=== PATIENT | female | born 1955 | race Caucasian/White ===

== ENCOUNTER → 2019-12-22 09:23 | Outpatient (CLI) | payer OTHER, SELFPAY ==
--- NOTE | 2019-12-22 09:27 | XR_ITS ---
PROCEDURE: XR SHOULDER LT MIN 2V CLINICAL INDICATION: left shoulder pain Left shoulder pain COMPARISON: No exams were available for comparison FINDINGS: There are mild osteoarthritic changes the acromioclavicular joint and glenohumeral joint. Spurring is present along the undersurface of the a chromium with severe subacromial stenosis. There is some minimal cortical regularity of the humeral head laterally which may be seen with rotator cuff disease. IMPRESSION: Osteoarthritic change with severe subacromial stenosis secondary to bony hypertrophy along the inferior aspect of the a chromium. This area of calcification could also represent calcific tendinitis. Dictated by: Herbert Mari MD 12/22/2019 14:46 Electronically signed by Herbert Mari MD in [place] 12/22/2019 14:46
== END ==
PROVIDERS: PCP Family Medicine; Visit Provider Orthopaedic Surgery
DX: M25.512 Pain in left shoulder (principal)
CPT/HCPCS: 73030

== ENCOUNTER → 2019-12-28 15:08 | Outpatient (CLI) | payer OTHER, SELFPAY ==
--- NOTE | 2019-12-28 15:08 | MR_ITS ---
PROCEDURE: MR SHOULDER LT WO CON CLINICAL INDICATION: evaluate for a rotator cuff tear Left shoulder pain with limited range of motion COMPARISON: XR SHOULDER LT MIN 2V from 12/22/2019 TECHNIQUE: Routine multiplanar multi echo sequences are performed without gadolinium enhancement. FINDINGS: There are osteoarthritic changes the acromioclavicular joint with subacromial stenosis. The subacromial space measures approximately mm. Osteoarthritic changes are also present at the glenohumeral joint. There is mild superior elevation of the humeral head in the glenoid fossa. There is complete tear of the supraspinatus tendon with mild retraction of the musculotendinous fibers. Tendinopathy/tendinosis is present involving the infraspinatus tendon. The subscapularis tendon and teres minor tendons appear intact. There is a small amount of fluid in the subdeltoid and subacromial region. The glenoid labral are not well delineated due to motion artifact. No definite labral tear. Bicipital tendon is in place. There is also some fluid in the subclavicular region with some heterogeneous intensity at this area anterior to the scapular spine.. IMPRESSION: 1. Complete tear of the supraspinatus tendon with mild retraction of the musculotendinous fibers. 2. Osteoarthritic change of the acromioclavicular joint and glenohumeral joint with subacromial stenosis with shoulder joint effusion as well as fluid in the subacromion subdeltoid region. There is also some fluid in the subclavicular region with some heterogeneous intensity at this area anterior to the scapular spine.. Dictated by: Herbert Mari MD 12/30/2019 10:19 Electronically signed by Herbert Mari MD in [place] 12/30/2019 10:19
== END ==
PROVIDERS: PCP Family Medicine; Visit Provider Orthopaedic Surgery
DX: G89.29 Other chronic pain (principal); M25.512 Pain in left shoulder
CPT/HCPCS: 73221

== ENCOUNTER → 2020-08-22 11:05 | Outpatient (CLI) | payer OTHER, SELFPAY ==
--- NOTE | 2020-08-22 11:06 | CA_ITS ---
APPROVED REPORT EXAM: Comprehensive 2D, Doppler, and color-flow Echocardiogram Tape Controlled Machine Stitcher: Karina Gallegos RT(R) Ht: 5 ft 3 in Wt: 266lbs BSA: 2.18 BP: 121/55 mmHg Indications: CP, HTN, hyperlipidemia, MAHAJAN, hx of myocardial bridge 2D Dimensions LVOT 1.85 cm (M/F) 1.5-2.5 M-Mode Dimensions RVDd 2.43 cm (0.9-2.6) LVDd 4.83 cm (3.5-5.7) LVDs 3.61 cm (3.5-5.7) IVSd 0.84 cm (0.6-1.1) PWd 1.03 cm (0.6-1.1) EF (Teich) 49.80% FS 25.30% EDV (Teich) 109.10 mL ESV (Teich) 54.80 mL LV Diastology E/A Ratio 0.68 Mitral Valve MV A Velocity 116.00 (40-130 cm/s) Left Ventricle Left atrium is mildly enlarged, left ventricle is normal size, mild concentric left ventricular hypertrophy, visually estimated ejection fraction 55% with no regional wall motion abnormality, grade 1 diastolic dysfunction seen without tissue Doppler evidence of raise left atrial pressure. Right Ventricle Right atrium and right ventricular normal size and contractility. Aortic Valve Aortic valve is minimally thickened and calcified, there is no aortic stenosis or aortic insufficiency. Mitral Valve Mitral valve leaflets are minimally thickened, there is mild mitral regurgitation. Tricuspid Valve Tricuspid valve is grossly normal, there is mild tricuspid regurgitation. Tricuspid regurgitation jet velocity is inadequate for calculation of the right ventricular systolic pressure. Pulmonic Valve Pulmonic valve is poorly visualized. Great Vessels Aortic root is normal size. Pericardium No significant pericardial effusion noted. Conclusion 1. Mildly enlarged left atrium, normal left ventricular size, mild concentric left ventricular hypertrophy, visually estimated ejection fraction 55% with no regional wall motion abnormality, grade 1 diastolic dysfunction seen without tissue Doppler evidence of raise left atrial pressure. 2. Thickened and calcified aortic valve without aortic stenosis or aortic insufficiency. 3. Mild mitral and tricuspid regurgitation. 4. No significant pericardial effusion noted. Electronically signed by : Olman Hollins, 08/22/2020 17:27:28
== END ==
PROVIDERS: PCP Family Medicine; Visit Provider Urology
DX: R07.89 Other chest pain (principal); R06.09 Other forms of dyspnea; Q24.5 Malformation of coronary vessels; R94.31 Abnormal electrocardiogram [ECG] [EKG]
CPT/HCPCS: 93306

== ENCOUNTER → 2020-09-12 15:54 | Outpatient (CLI) | payer OTHER, SELFPAY ==
[2020-09-12 17:18] LABS: Basophils # 0.1 K/mm3 (0-0.2); Basophils % 0.7 % (0.1-2.0); Eosinophils # 0.2 K/mm3 (0.0-0.4); Eosinophils % 1.9 % (0.1-12.0); Hematocrit 44.4 % (37.0-47.0); Hemoglobin 14.1 g/dL (12.2-16.2); Lymphocytes # 2.2 K/mm3 (0.7-4.5); Lymphocytes % 25.1 % (10-50); Mean Corpuscular HGB Conc 31.9 g/dL (31.8-35.4); Mean Corpuscular Hemoglobin 31.1 pg (27.0-31.2); Mean Corpuscular Volume 97.6 fl (81-99); Mean Platelet Volume 8.3 fl (7.4-10.4); Monocytes # 0.6 K/mm3 (0.1-1.0); Monocytes % 6.5 % (1.7-9.3); Neutrophils # 5.6 K/mm3 (1.8-7.8); Neutrophils % 65.8 % (37.0-80.0); Platelet Count 299 K/mm3 (142-424); Red Blood Count 4.54 M/mm3 (4.20-5.40); Red Cell Distribution Width 13.2 % (11.5-17.5); White Blood Count 8.6 K/mm3 (4.8-10.8)
[2020-09-12 17:29] LABS: Alanine Aminotransferase 9 U/L (12-78); Albumin Level 4.1 g/dl (3.5-5.0); Albumin/Globulin Ratio 1.3 (1.1-1.8); Alkaline Phosphatase 140 U/L (38-126); Anion Gap 10.7 mEq/L (5-15); Aspartate Amino Transferase 23 U/L (14-36); Bilirubin,Total 0.4 mg/dl (0.2-1.3); Blood Urea Nitrogen 16 mg/dl (7-17); Calcium 9.2 mg/dl (8.4-10.2); Carbon Dioxide 31 mmol/L (22.0-30.0); Chloride 103 mmol/L (98-107); Estimated Glomerular Filt Rate 85 ml/min (>60); GFR (African American) 103 ML/MIN (>60); Globulin 3.1 g/dL (1.3-3.2); Glucose 116 mg/dl (74-100); Potassium 4.7 mmoL/L (3.5-5.1); Sodium 140 mmol/L (136-145); Total Protein,Serum 7.2 g/dl (6.3-8.2)
[2020-09-12 17:44] LABS: T4 (Thyroxine) 10.3 ug/dl (5.53-11.0)
[2020-09-12 17:58] LABS: Thyroid Stimulating Hormone 0.21 uIU/mL (0.465-4.68)
== END ==
PROVIDERS: Visit Provider Family Medicine
DX: R13.10 Dysphagia, unspecified (principal); Z79.899 Other long term (current) drug therapy
CPT/HCPCS: 80053; 84436; 84443; 85025

== ENCOUNTER → 2020-10-03 08:58 | Outpatient (CLI) | payer OTHER, SELFPAY ==
--- NOTE | 2020-10-03 09:06 | FL_ITS ---
PROCEDURE: FL UPPER GI W AIR CLINICAL INDICATION: dysphagia, dry throat, history of previous gastric bypass surgery COMPARISON: No exams were available for comparison TECHNIQUE: FLUOROSCOPY TIME : 2 minutes 21 seconds FINDINGS: The swallowing function is normal. Spot films of the cervical esophagus show mild to moderate anterior osteophytic spurring at the C3-4, C4-5, and C5-6 levels but causing only minor posterior indentation of the cervical esophagus at these levels while swallowing. Esophageal motility is normal. There is no hiatal hernia and no GE reflux was seen during the study. There is a small gastric pouch with anastomosis to the small bowel which appears normal and there is no holdup to the flow of barium at the surgical site. Multiple surgical clips are seen. There is mild dilatation of the proximal loop of the jejunum which decompressed somewhat later in the study as there was progressive filling of normal appearing proximal small bowel loops. The there is no evidence of bowel wall thickening or abnormal displacement or distortion of the proximal small bowel. IMPRESSION: Essentially unremarkable study post gastric bypass surg, minor multilevel degenerate changes of the cervical spine but causing no significant compromise of the lumen of the cervical esophagus, surgical anastomotic site appears unremarkable. Dictated by: Dr. Lavon Saeed MD 10/03/2020 09:53 Dr. Lavon Saeed MD in [place] 10/03/2020 09:53
== END ==
PROVIDERS: PCP Family Medicine; Visit Provider Family Medicine
DX: R13.10 Dysphagia, unspecified (principal)
CPT/HCPCS: 74246

== ENCOUNTER → 2020-10-06 09:05 | Outpatient (CLI) | payer OTHER, SELFPAY ==
--- NOTE | 2020-10-06 09:06 | US_ITS ---
PROCEDURE: US THYROID CLINICAL INDICATION: dysphagia COMPARISON: No exams were available for comparison FINDINGS: The right lobe is 3.9 x 1.4 x 1.7 cm. The left lobe is 4 x 1.2 x 1.9 cm. There are 2 cysts in the right lobe 1 in the upper pole at 4 mm and 1 in the lower pole which is septated at 7 mm. The isthmus is slightly thickened at 5 mm. A 6 mm solid isoechoic nodules present in the upper pole on the left there is a 6 mm cyst in the midpole on the left and a 6 mm cyst in the lower pole on the left. IMPRESSION: Bilateral thyroid nodules most of which are cysts. There is a TR level 3 nodule in the upper pole on the left less than 1.5 cm. Consider 6-12 month follow-up Dictated by: Herbert Mari MD 10/06/2020 13:05 Herbert Mari MD in [place] 10/06/2020 13:05
== END ==
PROVIDERS: PCP Family Medicine; Visit Provider Family Medicine
DX: R13.10 Dysphagia, unspecified (principal)
CPT/HCPCS: 76536

== ENCOUNTER → 2022-12-27 14:50 | Outpatient (CLI) | payer MEDICARE, SELFPAY ==
[2022-12-27 15:48] LABS: Basophils # 0.1 K/mm3 (0-0.2); Basophils % 0.9 % (0.1-2.0); Eosinophils # 0.1 K/mm3 (0.0-0.4); Eosinophils % 1.6 % (0.1-12.0); Hemoglobin 13.5 g/dL (12.2-16.2); Lymphocytes # 1.7 K/mm3 (0.7-4.5); Lymphocytes % 21.1 % (10-50); Mean Corpuscular HGB Conc 32.2 g/dL (31.8-35.4); Mean Corpuscular Hemoglobin 30.9 pg (27.0-31.2); Mean Corpuscular Volume 95.9 fl (81-99); Mean Platelet Volume 8.4 fl (7.4-10.4); Monocytes # 0.5 K/mm3 (0.1-1.0); Monocytes % 5.9 % (1.7-9.3); Neutrophils # 5.7 K/mm3 (1.8-7.8); Neutrophils % 70.6 % (37.0-80.0); Platelet Count 283 K/mm3 (142-424); Red Blood Count 4.38 M/mm3 (4.20-5.40); White Blood Count 8.1 K/mm3 (4.8-10.8)
[2022-12-27 15:54] LABS: Alanine Aminotransferase 13 U/L (12-78); Albumin Level 3.8 g/dl (3.5-5.0); Albumin/Globulin Ratio 1.3 (1.1-1.8); Alkaline Phosphatase 121 U/L (38-126); Anion Gap 11.4 mEq/L (5-15); Aspartate Amino Transferase 23 U/L (14-36); Bilirubin,Total 0.3 mg/dl (0.2-1.3); Blood Urea Nitrogen 15 mg/dl (7-17); Calcium 8.3 mg/dl (8.4-10.2); Carbon Dioxide 27 mmol/L (22.0-30.0); Chloride 106 mmol/L (98-107); Chol/HDL Ratio 4.3 (1-3.5); Cholesterol 211 mg/dl (140-200); Estimated Glomerular Filt Rate 84 ml/min (>60); GFR (African American) 102 ML/MIN (>60); Glucose 116 mg/dl (74-100); HDL Cholesterol 49 mg/dl (40-60); Potassium 4.4 mmoL/L (3.5-5.1); Sodium 140 mmol/L (136-145); Total Protein,Serum 6.8 g/dl (6.3-8.2); Triglycerides 160 mg/dl (30-150); VLDL Cholesterol 32 mg/dL (0-40)
[2022-12-27 16:07] LABS: Direct LDL Cholesterol 124.04 mg/dL (100-129)
[2022-12-27 16:24] LABS: Thyroid Stimulating Hormone 0.05 uIU/mL (0.465-4.68)
[2022-12-27 17:31] LABS: Hemoglobin A1C 6.8 % (4.0-6.0)
== END ==
PROVIDERS: PCP Family Medicine; Visit Provider Family Medicine
DX: E11.9 Type 2 diabetes mellitus without complications (principal); R07.89 Other chest pain; I10 Essential (primary) hypertension; R06.09 Other forms of dyspnea
CPT/HCPCS: 80053; 80061; 83036; 84443; 85025

== ENCOUNTER → 2023-04-29 23:21 | Outpatient (CLI) | payer MEDICARE, BC, SELFPAY ==
[2023-04-29 19:59] LABS: Alanine Aminotransferase 16 U/L (12-78); Albumin Level 4.2 g/dl (3.5-5.0); Albumin/Globulin Ratio 1.4 (1.1-1.8); Alkaline Phosphatase 143 U/L (38-126); Anion Gap 14.6 mEq/L (5-15); Aspartate Amino Transferase 26 U/L (14-36); Bilirubin,Total 0.4 mg/dl (0.2-1.3); Blood Urea Nitrogen 15 mg/dl (7-17); Calcium 8.7 mg/dl (8.4-10.2); Carbon Dioxide 26 mmol/L (22.0-30.0); Chloride 104 mmol/L (98-107); Estimated Glomerular Filt Rate 84 ml/min (>60); GFR (African American) 102 ML/MIN (>60); Globulin 3.1 g/dL (1.3-3.2); Glucose 119 mg/dl (74-100); Potassium 4.6 mmoL/L (3.5-5.1); Sodium 140 mmol/L (136-145); Total Protein,Serum 7.3 g/dl (6.3-8.2)
[2023-04-29 20:11] LABS: Free T4 (Free Thyroxine) 1.21 ng/dl (0.78-2.19)
[2023-04-29 20:24] LABS: Thyroid Stimulating Hormone 0.29 uIU/mL (0.465-4.68)
[2023-05-01 08:37] LABS: T4 (Thyroxine) 9.5 ug/dl (5.53-11.0)
== END ==
PROVIDERS: PCP Family Medicine; Visit Provider Family Medicine
DX: E03.9 Hypothyroidism, unspecified (principal); I10 Essential (primary) hypertension
CPT/HCPCS: 80053; 84436; 84439; 84443

== ENCOUNTER → 2023-05-16 14:46 | Outpatient (CLI) | payer MEDICARE, BC, SELFPAY ==
--- NOTE | 2023-05-16 14:47 | US_ITS ---
FINAL REPORT TECHNIQUE: Limited sonographic images of the thyroid were obtained. CLINICAL HISTORY: follow up on nodules COMPARISON: 10/06/2020 FINDINGS: US THYROID/HEAD OR NECK SOFT TISSUE The right lobe of the thyroid measures 3.3 x 1.5 x 2.0 cm. There is a solid, hypoechoic nodule measuring 8 x 4 x 5 mm consistent with TI-RADS category 4. There is a cystic nodule measuring 8 x 6 x 4 mm consistent with TI-RADS category 1. The left lobe of the thyroid measures 3.4 x 1.5 x 2.0 cm. There is a solid, isoechoic nodule measuring 5 x 4 x 3 mm consistent with TI-RADS category 3. The isthmus measures 4 mm. IMPRESSION: Bilateral thyroid nodules, similar to previous. No follow-up is required. Reviewed, Interpreted and Dictated by Charly Gomez III, MD Transcribed by Luiza Torres Authenticated and [facility]
--- NOTE | 2023-05-16 14:47 | XR_ITS ---
FINAL REPORT CLINICAL HISTORY: aspiration FINDINGS: TWO VIEW CHEST The heart size is normal. The mediastinum is normal. The lungs are clear. There is no pneumothorax. IMPRESSION: No acute cardiopulmonary process. Reviewed, Interpreted and Dictated by Pradeep Anderson MD Transcribed by Ramana Blue Authenticated and [facility]
== END ==
PROVIDERS: PCP Family Medicine; Visit Provider Family Medicine
DX: E04.1 Nontoxic single thyroid nodule (principal); R06.00 Dyspnea, unspecified
CPT/HCPCS: 71046; 76536

== ENCOUNTER 2024-02-18 18:47 | Outpatient (CLI) | payer MEDICARE, BC, SELFPAY ==
[2024-02-18 18:31] LABS: Basophils # 0.1 K/mm3 (0-0.2); Basophils % 1.1 % (0.1-2.0); Eosinophils # 0.2 K/mm3 (0.0-0.4); Eosinophils % 2.3 % (0.1-12.0); Hematocrit 42.3 % (37.0-47.0); Hemoglobin 13.7 g/dL (12.2-16.2); Lymphocytes # 1.9 K/mm3 (0.7-4.5); Lymphocytes % 24.4 % (10-50); Mean Corpuscular HGB Conc 32.4 g/dL (31.8-35.4); Mean Corpuscular Hemoglobin 32.5 pg (27.0-31.2); Mean Corpuscular Volume 100.3 fl (81-99); Mean Platelet Volume 8.9 fl (7.4-10.4); Monocytes # 0.5 K/mm3 (0.1-1.0); Monocytes % 6.1 % (1.7-9.3); Neutrophils # 5.1 K/mm3 (1.8-7.8); Neutrophils % 66.2 % (37.0-80.0); Platelet Count 261 K/mm3 (142-424); Red Blood Count 4.22 M/mm3 (4.20-5.40); Red Cell Distribution Width 13.4 % (11.5-17.5); White Blood Count 7.7 K/mm3 (4.8-10.8)
[2024-02-18 19:01] LABS: Alanine Aminotransferase 13 U/L (12-78); Albumin Level 4.2 g/dl (3.5-5.0); Albumin/Globulin Ratio 1.6 (1.1-1.8); Alkaline Phosphatase 115 U/L (38-126); Anion Gap 12.4 mEq/L (5-15); Aspartate Amino Transferase 26 U/L (14-36); Bilirubin,Total 0.4 mg/dl (0.2-1.3); Blood Urea Nitrogen 18 mg/dl (7-17); Carbon Dioxide 29 mmol/L (22.0-30.0); Chloride 103 mmol/L (98-107); Chol/HDL Ratio 5.1 (1-3.5); Cholesterol 214 mg/dl (140-200); Estimated Glomerular Filt Rate 84 ml/min (>60); GFR (African American) 101 ML/MIN (>60); Globulin 2.6 g/dL (1.3-3.2); Glucose 107 mg/dl (74-100); HDL Cholesterol 42 mg/dl (40-60); Potassium 4.4 mmoL/L (3.5-5.1); Sodium 140 mmol/L (136-145); Total Protein,Serum 6.8 g/dl (6.3-8.2); Triglycerides 168 mg/dl (30-150); VLDL Cholesterol 34 mg/dL (0-40)
[2024-02-18 19:32] LABS: Thyroid Stimulating Hormone 0.02 uIU/mL (0.465-4.68)
== END 2024-02-18 23:59 ==
LOC: LAB.DROPOF 18:48
PROVIDERS: PCP Family Medicine; Visit Provider Family Medicine
DX: E11.9 Type 2 diabetes mellitus without complications (principal); E04.1 Nontoxic single thyroid nodule; M25.512 Pain in left shoulder; Z79.84 Long term (current) use of oral hypoglycemic drugs
CPT/HCPCS: 80053; 80061; 83036; 84443; 85025

== ENCOUNTER 2024-03-11 10:56 | Outpatient (CLI) | payer MEDICARE, BC, SELFPAY ==
--- NOTE | 2024-03-11 10:56 | US_ITS ---
FINAL REPORT TECHNIQUE: Real-time grayscale and color ultrasound of the thyroid was performed. CLINICAL HISTORY: thyroid nodule, abn labs COMPARISON: 05/16/2023 FINDINGS: The thyroid gland measures 34 x 15 x 17 mm on the right and 38 x 11 x 18 mm on the left. The isthmus measures 2 mm. The parenchyma is unremarkable . Nodules: The previously noted 8 mm nodule on the right now measures 6 mm and appears more heterogeneous. The previously noted 6 mm nodule in the right now appears more heterogeneous. There is a new nodule in the right lower pole measuring 8 mm in diameter, appears rounded, hypoechoic, and solid consistent with TR 4. Left 5 mm nodule is unchanged. IMPRESSION: Multiple nodules, somewhat changed in characteristic but all less than 1 cm. New right nodule measuring less than 1 cm. Per TI-RADS criteria, no definite follow-up required due to size. Reviewed, Interpreted and Dictated by Pradeep Anderson MD Transcribed by Marian Gusman Authenticated and [facility]
== END 2024-03-11 23:59 | disposition home or self-care (01) ==
LOC: RAD 10:56
PROVIDERS: PCP Family Medicine; Visit Provider Family Medicine
DX: E04.1 Nontoxic single thyroid nodule (principal)
CPT/HCPCS: 76536

== ENCOUNTER 2024-03-26 18:00 | Outpatient (CLI) | payer MEDICARE, BC, SELFPAY ==
[2024-03-26 19:10] LABS: T4 (Thyroxine) 9.8 ug/dl (5.53-11.0); Triiodothryronine (T3) Uptake 29 % (23.5-40.5)
[2024-03-26 19:24] LABS: Thyroid Stimulating Hormone 0.05 uIU/mL (0.465-4.68)
[2024-03-28 09:17] LABS: Thyroid Peroxidase Antibodies 12 IU/mL (0-34)
== END 2024-03-26 23:59 | disposition home or self-care (01) ==
LOC: LAB.DROPOF 03-27 09:24
PROVIDERS: PCP Family Medicine; Visit Provider Family Medicine
DX: E04.1 Nontoxic single thyroid nodule (principal)
CPT/HCPCS: 84436; 84443; 84479; 86376

== ENCOUNTER 2025-01-14 11:25 | Outpatient (CLI) | payer MEDICARE, BC, SELFPAY ==
[2025-01-14 18:15] LABS: Basophils # 0.1 K/mm3 (0-0.2); Basophils % 0.7 % (0.1-2.0); Eosinophils # 0.2 K/mm3 (0.0-0.4); Eosinophils % 2.1 % (0.1-12.0); Hematocrit 43.1 % (37.0-47.0); Hemoglobin 14.1 g/dL (12.2-16.2); Lymphocytes # 1.9 K/mm3 (0.7-4.5); Lymphocytes % 26.6 % (10-50); Mean Corpuscular HGB Conc 32.7 g/dL (31.8-35.4); Mean Corpuscular Hemoglobin 30.9 pg (27.0-31.2); Mean Corpuscular Volume 94.5 fl (81-99); Mean Platelet Volume 9.7 fl (7.4-10.4); Monocytes # 0.6 K/mm3 (0.1-1.0); Monocytes % 8.6 % (1.7-9.3); Neutrophils # 4.3 K/mm3 (1.8-7.8); Neutrophils % 61.6 % (37.0-80.0); Platelet Count 284 K/mm3 (142-424); Red Blood Count 4.56 M/mm3 (4.20-5.40); Red Cell Distribution Width 12.9 % (11.5-17.5); White Blood Count 7.1 K/mm3 (4.8-10.8)
[2025-01-14 18:40] LABS: Albumin Level 4.4 g/dl (3.5-5.0); Chloride 103 mmol/L (98-107); Sodium 138 mmol/L (136-145)
[2025-01-14 18:41] LABS: Potassium 4.7 mmoL/L (3.5-5.1)
[2025-01-14 18:43] LABS: Alanine Aminotransferase 15 U/L (12-78); Albumin/Globulin Ratio 1.5 (1.1-1.8); Alkaline Phosphatase 113 U/L (38-126); Anion Gap 13.7 mEq/L (5-15); Aspartate Amino Transferase 25 U/L (14-36); Bilirubin,Total 0.5 mg/dl (0.2-1.3); Blood Urea Nitrogen 18 mg/dl (7-17); Carbon Dioxide 26 mmol/L (22.0-30.0); Cholesterol 232 mg/dl (140-200); Estimated Glomerular Filt Rate 72 ml/min (>60); GFR (African American) 87 ML/MIN (>60); Globulin 2.9 g/dL (1.3-3.2); Total Protein,Serum 7.3 g/dl (6.3-8.2); Triglycerides 190 mg/dl (30-150); VLDL Cholesterol 38 mg/dL (0-40)
[2025-01-14 18:44] LABS: Chol/HDL Ratio 4.9 (1-3.5); Glucose 117 mg/dl (74-100); HDL Cholesterol 47 mg/dl (40-60)
[2025-01-14 19:00] LABS: Direct LDL Cholesterol 140.63 mg/dL (100-129)
[2025-01-14 19:02] LABS: T4 (Thyroxine) 10.8 ug/dl (5.53-11.0)
[2025-01-14 19:16] LABS: Thyroid Stimulating Hormone 0.02 uIU/mL (0.465-4.68)
== END 2025-01-14 23:59 | disposition home or self-care (01) ==
LOC: LAB.DROPOF 01-15 11:54
PROVIDERS: PCP Family Medicine; Visit Provider Family Medicine
DX: E04.1 Nontoxic single thyroid nodule (principal); E66.01 Morbid (severe) obesity due to excess calories; Z68.42 Body mass index [BMI] 45.0-49.9, adult
CPT/HCPCS: 80053; 80061; 84436; 84443; 85025

== ENCOUNTER 2025-01-27 14:02 | Outpatient (CLI) | payer MEDICARE, BC, SELFPAY ==
--- NOTE | 2025-01-27 14:03 | MM_ITS ---
PROCEDURE INFORMATION: Exam: MG Bilateral Screening 3D Mammography Exam date and time: 01/27/2025 2:08 PM Age: 69 years old Clinical indication: Screening examination TECHNIQUE: Imaging protocol: Bilateral Screening tomosynthesis and 2D mammography including computer-aided detection (CAD) when performed. COMPARISON: No relevant prior studies available. FINDINGS: MAMMOGRAPHY: Breast composition: The breasts are almost entirely fatty. Mass: 2.0 cm mass in the middle third of the right lower inner quadrant Architectural distortion: None. Calcifications: No suspicious calcifications. Asymmetric density: None. Skin thickening: None. Axillary adenopathy: None. IMPRESSION: Patient to be recalled for spot compression views of the right breast in the CC and MLO projections, a full 90 degree lateral view, and right breast ultrasound for further evaluation of a right breast mass. ASSESSMENT: BI-RADS Category 0: Incomplete- Need Additional Imaging Evaluation
--- NOTE | 2025-01-27 14:03 | US_ITS ---
FINAL REPORT TECHNIQUE: Real-time grayscale and color ultrasound of the thyroid was performed. CLINICAL HISTORY: Thyroid Nodule COMPARISON: 03/11/2024 FINDINGS: The thyroid gland is borderline atrophic measuring 31 x 14 x 13 mm on the right and 39 x 15 x 16 mm on the left. The isthmus measures 5 mm. The parenchyma is heterogeneous. Findings are probably related to chronic thyroiditis.. Nodules: There are multiple small benign-appearing nodules, all measuring less than 1 cm. The previously described new right thyroid nodule is not evident on the current exam. IMPRESSION: No suspicious nodules. Benign multinodular goiter. No further follow-up considered indicated per TI-RADS criteria. Reviewed, Interpreted and Dictated by Yessica Trejo MD Transcribed by Marian Gusman Authenticated and [facility]
== END 2025-01-27 23:59 | disposition home or self-care (01) ==
LOC: RAD 14:03
PROVIDERS: PCP Family Medicine; Visit Provider Family Medicine
DX: E04.1 Nontoxic single thyroid nodule (principal); Z12.31 Encounter for screening mammogram for malignant neoplasm of breast
CPT/HCPCS: 76536; 77063; 77067

== ENCOUNTER 2025-02-07 07:49 | Outpatient (CLI) | payer MEDICARE, BC, SELFPAY ==
--- NOTE | 2025-02-07 08:20 | CT_ITS ---
APPROVED REPORT Acute Care Clinical Nurse Specialist: CLINICAL INDICATION Chest Pain TECHNIQUE Image Acquisition: A 128 slice MDCT scanner (Terna View) was used for data acquisition. A noncontrast coronary calcium scan was performed. A CT attenuation threshold of 130 Hounsfield units (HU) was used for the detection of calcium in contiguous voxels of 1 sq mm in area to be counted as individual lesions. Bolus tracking in the ascending aorta with a threshold of 180 HU was performed. Immediately afterwards, ECG synchronized cardiac CT was then performed from the cardiac base to apex using retrospective gating with ECG tube current modulation. A total of 85 mL of Isovue 370 mg/mL contrast medium was administered at 5 mL/sec followed by a saline flush using a biphasic injection protocol. A tube voltage of 120 KVp was used. The patient received the following medications prior to the cardiac CT. 50 mg of oral metoprolol 15 mg of oral ivabradine 0.8 mg of sublingual nitroglycerin The average heart rate at the time of acquisition was 52 bpm and regular. Image Reconstruction Transaxial images were reconstructed at 0.67 mm slide thickness. Data was reviewed interactively on an advanced workstation capable of 2 and 3-dimensional displays in all conventional reconstruction formats, including multiplanar reformations, maximum intensity projections, curved multiplanar reformations, and volume rendered reconstructions. When applicable, selected routine images describing the relevant coronary anatomy and pathology were saved and sent to PACS. Complications None Technical Quality Overall image quality was good. Coronary artery opacification was adequate. Total DLP (Dose-Length Product) is 2396.6 mGy-cm. The reported value represents the total of one or more individual components during the CT acquisition of this date and at this time, and as such, the same value may appear in more than one CT report depending on the interpreting/reporting physicians. COMPARISON None FINDINGS CT Coronary Calcium Scoring LMA (Left Main Artery) = 60 LAD (Left Anterior Descending) = 648 LCX (Left Coronary Circumflex) = 49 RCA (Right Coronary Artery) = 104 Total Calcium Score = 861 using the AJ-130 method. The observed calcium score of 861 is at 97th percentile for subjects of the same age, sex, and race/ethnicity. The interpretation of the calcium heart score is based on the following continuum*: 0 = no calcified plaque detected (risk of coronary artery disease is very low ??? less than 5%) 1-10 = calcium detected in extremely minimal levels (risk of coronary diseases is still low ??? less than 10%) 11-100 = mild levels of plaque detected with certainty (mild or minimal narrowing of heart arteries is likely) 101-400 = definite,at least moderate levels of plaque detected (relatively high risk of a heart attack within 3-5 years) >401-999 = extensive levels of plaque detected (high risk of heart attack, high levels of vascular disease are present, high likelihood of at least one significant coronary narrowing) *The calcium heart score quantifies the burden of coronary calcification/plaque in the coronary arteries. The calcium heart score is not able to evaluate the presence or burden of non-calcified (i.e. soft) plaque. Coronary CT Angiography The coronary arterial system is right dominant. Quantitative Stenosis Grading: Left Main (LM): The left main originates normally from the left sinus of Valsalva. The LM bifurcates into the left anterior descending artery and left circumflex artery. There is mixed calcified/non-calcified plaque in the LM, with no evidence of luminal stenosis. Left Anterior Descending (LAD) and Diagonal Branches: The LAD gives off 2 diagonal branch(es). There is mixed calcified/non-calcified plaque in the proximal and mid LAD segments, with up to 70-90% luminal stenosis in the mid-LAD segment involving the first diagonal branch. There is no evidence of LAD-myocardial bridge. Left Circumflex (LCX) and Obtuse Marginals (OM): The LCX gives off 1 Obtuse Marginal (OM) branch(es). There is mixed calcified/non-calcified plaque in the proximal LCX, with up to 25-49% luminal stenosis in the proximal LCX. Right Coronary Artery (RCA): The RCA originates normally from the right sinus of Valsalva. The RCA gives off a posterior descending artery (PDA) and posterolateral (PL) branches. The RCA and its branches are patent with no evidence of atherosclerosis. Non-Coronary Cardiac Findings: Analysis of the left ventricular (LV) structure and function was performed after 3-D reconstruction of the LV from axial images, with user-corrected automatic contouring for assessment of LV volumes and user-defined reconstruction from oblique planes for measurement of 3-D cardiac structure and function. -The left ventricle systolic function is normal. -There is no left atrial appendage filling defect. Two right pulmonary veins and two left pulmonary veins drain normally into the left atrium. -No pericardial thickening or calcification. -Central and branch pulmonary arteries in the [id number] are unremarkable. -Thoracic aorta within the visualized thoracic aortic-branches in the [id number] is unremarkable. Extracardiac Structures No significant extra-cardiac findings. Note, however, that this study is focused on the cardiac findings. IMPRESSION -Presence of coronary calcification with an Agatston score = 861 using the AJ-130 method. -The observed calcium score of 861 is at 97th percentile for subjects of the same age, sex, and race/ethnicity. -Multivessel atherosclerotic coronary disease, with likely evidence of significant flow-limiting atherosclerosis of the mid-LAD segment involving the first diagonal branch. -CAD-RADS 4A. Management recommendations per ACC/AHA guidelines*, as clinically appropriate. *Recommendations: CAD RADS 0: Reassurance. Consider non-atherosclerotic causes of chest pain. CAD RADS 1: Consider non-atherosclerotic causes of chest pain. Consider preventive therapy and risk factor modification. CAD RADS 2: Consider non-atherosclerotic causes of chest pain. Consider preventive therapy and risk factor modification, particularly for patients with nonobstructive plaque in multiple segments. CAD RADS 3: Consider further functional testing. Consider symptom-guided anti-ischemic and preventive pharmacotherapy as well as risk factor modification per published guideline statements. CAD RADS 4A: Consider further functional testing or invasive coronary angiography with revascularization per published guideline statements. Consider symptom-guided anti-ischemic and preventive pharmacotherapy as well as risk factor modification per published guideline statements. CAD RADS 4B: Invasive coronary angiography recommended with revascularization per published guideline statements. Consider symptom-guided anti-ischemic and preventive pharmacotherapy as well as risk factor modification per published guideline statements. CAD RADS 5: Consider invasive angiography and/or viability assessment with revascularization per published guideline statements. Consider symptom-guided anti-ischemic and preventive pharmacotherapy as well as risk factor modification per published guideline statements. CRITICAL RESULT None COMMUNICATION Per this written report The coronary and cardiac findings of this CCTA were reviewed, reported, and signed by Remi Owens MD (Salon Manager) Conclusion Electronically signed by : Britt Owens MD 02/08/2025 13:19:47
[2025-02-07 08:23] VITALS: BMI 46.5
[2025-02-07 08:29] VITALS: BP 130/66; PULSE 67; RESP 18; O2SAT 97
[2025-02-07] MEDS: IVABRADINE HCL 7.5MG TABLET 15 MG PO (08:44)
[2025-02-07] MEDS: METOPROLOL TARTRATE 50MG TABLET 50 MG (08:44)
[2025-02-07 09:40] VITALS: BP 122/85; PULSE 57; RESP 17; O2SAT 93
[2025-02-07] MEDS: NITROGLYCERIN 0.4MG SL TABLET 0.4 MG SL (09:40)
[2025-02-07 09:45] VITALS: BP 92/59; PULSE 56; RESP 17; O2SAT 96
[2025-02-07 09:50] VITALS: BP 108/59; PULSE 58; RESP 17; O2SAT 94
[2025-02-07 09:55] VITALS: BP 92/47; PULSE 57; RESP 18; O2SAT 96
[2025-02-07] MEDS: 0.9 % SODIUM CHLORIDE 50 ML VIAL IV (09:56)
[2025-02-07] MEDS: SODIUM CHLORIDE 0.9% 10ML SYR (RAD ONLY) 10 ML IV (09:56)
[2025-02-07] MEDS: IOPAMIDOL-370 (76%);100ML BOTTLE 80 ML IV (09:56)
[2025-02-07 10:05] VITALS: BP 90/46; PULSE 54; RESP 18; O2SAT 96
== END 2025-02-07 10:15 | disposition home or self-care (01) ==
LOC: RT 07:50 → RAD 08:39
PROVIDERS: PCP Family Medicine; Visit Provider Physician Assistant
DX: R94.31 Abnormal electrocardiogram [ECG] [EKG] (principal); I10 Essential (primary) hypertension; E11.9 Type 2 diabetes mellitus without complications
CPT/HCPCS: 75574; 93306; Q9967

== ENCOUNTER 2025-02-09 13:39 | Outpatient (CLI) | payer MEDICARE, BC, SELFPAY ==
--- NOTE | 2025-02-09 13:40 | US_ITS ---
PROCEDURE INFORMATION: Exam: US Right Breast, Complete MG Right Diagnostic Breast Tomosynthesis Exam date and time: 02/09/2025 1:47 PM Age: 69 years old Clinical indication: Patient recalled on the basis of a screening mammogram for further evaluation; Right breast; mass TECHNIQUE: Imaging protocol: Complete ultrasound of all four quadrants of the right breast and the retroareolar regions, including ultrasound of the axilla when performed. Right Diagnostic tomosynthesis and 2D mammography including computer-aided detection (CAD) when performed. Unilateral or bilateral exam. COMPARISON: MG MM DIG SCREENING MAMM BI W/CAD 01/27/2025 2:08 PM FINDINGS: MAMMOGRAPHY: Breast composition: The breast is almost entirely fatty (based on the most recent screening mammogram report). Breast mammogram findings: Digital diagnostic spot compression views of the right breast and 90 degree lateral view of the right breast demonstrate a persistent bilobed 3.0 cm mass which appears to contain fat in the MLO projection suggestive of a possible benign hamartoma. ULTRASOUND: Breast ultrasound findings: Sonographic images of the right breast including the retroareolar region, all 4 quadrants and the axilla do not demonstrate any solid masses. Cursors were placed over normal fat in the right lower inner quadrant 12 cm from the nipple. 1.2 x 0.3 x 1.8 cm probable cyst in the right 5 o'clock axis 5 cm from the nipple versus normal fibrofatty tissue. No architectural distortion or acoustical shadowing. No skin thickening or axillary adenopathy. IMPRESSION: The finding on mammography in the right lower quadrant is not well seen on sonography. The finding may reflect a benign hamartoma. A six-month follow-up diagnostic right mammogram is recommended to ensure stability over time. The targeted right lower quadrant ultrasound is also recommended to assess stability of a probable cyst versus island of normal fibrofatty tissue ASSESSMENT: BI-RADS Category 3: Probably benign.
== END 2025-02-09 23:59 | disposition home or self-care (01) ==
LOC: RAD 13:40
PROVIDERS: PCP Family Medicine; Visit Provider Family Medicine
DX: R92.8 Other abnormal and inconclusive findings on diagnostic imaging of breast (principal)
CPT/HCPCS: 76641; 77061; 77065; G0279

== ENCOUNTER 2025-02-25 10:15 | Day surgery (SDC) | payer MEDICARE, BC, SELFPAY ==
[2025-02-25] VITALS (10 sets, daily range): BP systolic 95–156; BP diastolic 9–72; PULSE 63–83; RESP 18–20; TEMP 36.1; O2SAT 90–96; BMI 47.1
--- NOTE | 2025-02-25 07:22 | IR_ITS ---
APPROVED REPORT Patient Location: Outpatient PROCEDURES Left heart catheterization Left ventriculogram Selective coronary angiogram INDICATION Abnormal CCTA, Angina pectoris Informed consent was obtained prior to the procedure. COMPLICATIONS none Estimated Blood Loss: less than 10ml TECHNIQUE One percent lidocaine used to anesthetize the right anterior aspect of the wrist. The right radial artery was accessed via the Seldinger technique. A 6 Irish sheath was placed in the right radial artery. 2.5 mg of Verapamil, 800 mcg of nitroglycerin, 1mg Lidocaine and 5000 U Heparin were given through the arterial sheath. The 6 Irish JL 3 guide catheter was also used to perform left heart catheterization, left ventriculogram and selective coronary angiogram. At the end of the procedure the sheath was removed good hemostasis was achieved using Traclet band, patient was transferred to the postop holding area in stable condition. ANGIOGRAPHIC RESULTS The left main artery Has a smooth ostial 10% stenosis The left anterior descending artery Is proximally calcified with 10% luminal regularities with an additional mid vessel concentric 20% stenosis followed by a small myocardial bridge which compresses to 30 to 40% during systole. The remaining LAD is large. 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 Medical management for diastolic dysfunction and coronary artery disease 2. Myocardial bridge is clinically insignificant Electronically signed by : Huseyin Dean MD 02/25/2025 13:05:26
[2025-02-25 10:46] LABS: Basophils # 0.1 K/mm3 (0-0.2); Basophils % 0.6 % (0.1-2.0); Eosinophils % 0.1 % (0.1-12.0); Hemoglobin 14.3 g/dL (12.2-16.2); Lymphocytes # 2.5 K/mm3 (0.7-4.5); Lymphocytes % 24.8 % (10-50); Mean Corpuscular Hemoglobin 31.3 pg (27.0-31.2); Mean Corpuscular Volume 91.9 fl (81-99); Mean Platelet Volume 8.7 fl (7.4-10.4); Monocytes # 0.7 K/mm3 (0.1-1.0); Monocytes % 7.4 % (1.7-9.3); Neutrophils # 6.6 K/mm3 (1.8-7.8); Neutrophils % 66.1 % (37.0-80.0); Platelet Count 277 K/mm3 (142-424); Red Blood Count 4.57 M/mm3 (4.20-5.40); Red Cell Distribution Width 12.2 % (11.5-17.5); White Blood Count 9.9 K/mm3 (4.8-10.8)
[2025-02-25 10:49] LABS: Chloride 102 mmol/L (98-107); Potassium 4.6 mmoL/L (3.5-5.1); Sodium 139 mmol/L (136-145)
[2025-02-25 10:52] LABS: Anion Gap 14.6 mEq/L (5-15); Blood Urea Nitrogen 19 mg/dl (7-17); Calcium 9.4 mg/dl (8.4-10.2); Carbon Dioxide 27 mmol/L (22.0-30.0); Creatinine Clearance Estimated 45 mL/min (50-200); Estimated Glomerular Filt Rate 72 ml/min (>60); GFR (African American) 87 ML/MIN (>60); Glucose 121 mg/dl (74-100)
[2025-02-25] MEDS: HEPARIN 1,000 UNITS/ML 10ML VIAL (CATH LAB) 10000 UNIT IV (12:18)
[2025-02-25] MEDS: diphenhydrAMINE 50MG/ML VIAL 50 MG IV (12:21)
[2025-02-25] MEDS: 0.9 % SODIUM CHLORIDE 500 ML 25 ML IV (12:22)
[2025-02-25] MEDS: LIDOCAINE 1% 10ML MDV 20 ML IJ (12:22)
[2025-02-25] MEDS: VERAPAMIL 2.5MG/ML 2ML VIAL 2.5 MG IV (12:22)
[2025-02-25] MEDS: HEPARIN 1,000 UNITS/500ML NS (CATH LAB) 3000 UNIT IV (12:23)
[2025-02-25] MEDS: NITROGLYCERIN 800MCG/8ML SYR (CATH LAB) 800 MCG IA (12:23)
[2025-02-25] MEDS: ONDANSETRON 4MG/2ML VIAL 4 MG IV (12:26)
[2025-02-25] MEDS: MIDAZOLAM HCL 1MG/ML 5ML VIAL 1 MG IV (12:44)
[2025-02-25] MEDS: FENTANYL 100MCG/2ML VIAL 50 MCG IV (12:45)
[2025-02-25] MEDS: IOPAMIDOL-370 (76%);100ML BOTTLE 70 ML IV (14:16)
== END 2025-02-25 15:16 | disposition home or self-care (01) ==
PROVIDERS: PCP Family Medicine; Visit Provider Internal Medicine
DX: I25.118 Atherosclerotic heart disease of native coronary artery with other forms of angina pectoris (principal); R93.1 Abnormal findings on diagnostic imaging of heart and coronary circulation; R94.31 Abnormal electrocardiogram [ECG] [EKG]; R06.09 Other forms of dyspnea; D50.9 Iron deficiency anemia, unspecified; Z88.8 Allergy status to other drugs, medicaments and biological substances; Z79.84 Long term (current) use of oral hypoglycemic drugs; Z79.899 Other long term (current) drug therapy; Z82.49 Family history of ischemic heart disease and other diseases of the circulatory system
CPT/HCPCS: 36415; 80048; 85025; 93458; 99152; C1725; C1769; J1200; J1644; J2405; J3010; Q9967

== ENCOUNTER 2025-08-15 14:43 | Outpatient (CLI) | payer MEDICARE, BC, SELFPAY ==
--- NOTE | 2025-08-15 14:45 | MM_ITS ---
PROCEDURE INFORMATION: Exam: US Right Breast, Complete MG Right Diagnostic Breast Tomosynthesis Exam date and time: 08/15/2025 2:51 PM Age: 69 years old Clinical indication: Short-term radiographic followup; Right breast; mass TECHNIQUE: Imaging protocol: Complete ultrasound of all four quadrants of the right breast and the retroareolar regions, including ultrasound of the axilla when performed. Right Diagnostic tomosynthesis and 2D mammography including computer-aided detection (CAD) when performed. Unilateral or bilateral exam. COMPARISON: 1. MG MM DIG MAMM DX UNILAT RT CAD 02/09/2025 1:47 PM 2. MG MM DIG SCREENING MAMM BI W/CAD 01/27/2025 2:08 PM Sonogram dated 02/09/2025 FINDINGS: MAMMOGRAPHY: Breast composition: The breasts are almost entirely fatty. Breast mammogram findings: There is no stellate mass, architectural distortion or suspicious microcalcifications to suggest malignancy. Stable partially lucent approximate 2.0 cm mass in the middle third of the right lower inner quadrant. No skin thickening or axillary adenopathy. ULTRASOUND: Breast ultrasound findings: Sonographic images of the right breast including the retroareolar region, all 4 quadrants and the axilla do not demonstrate any solid or cystic masses. Cursors were placed over focal fatty tissue in the right lower inner quadrant 12 cm from the nipple. Cursors were placed over benign calcium. Previously noted right 5 o'clock axis probable cyst has resolved. No architectural distortion or acoustical shadowing. No skin thickening or axillary adenopathy. IMPRESSION: Stable probably benign mass in the right lower inner quadrant compared to prior mammogram dated 02/09/2025. A six-month follow-up diagnostic bilateral mammogram is recommended for continued close surveillance of the right-sided mass as well as part of an annual screening schedule ASSESSMENT: BI-RADS Category 3: Probably benign.
--- OUTSIDE RECORDS SUMMARY | 2025-08-15 14:48 | XMS_ITS | Clinical Summary ---
Author Organization [facility] Address [address] [place] [address] Care Team Providers Care Plant Operations Engineer Name Role Phone Won Soto MD Primary Care Provider [phone] Nataliya Marquez MD Unavailable [phone] Allergies Active Allergy Reactions Criticality Noted Date Comments Lorazepam 10/15/2011 Medications aspirin 325 mg Take 325 mg by mouth daily. Active lisinopril-hydr ochlorothiazide (PRINZIDE;ZESTO RETIC) 10-12.5 mg per tablet Take 1 Tab by mouth 2 times daily. Active ferrous sulfate (IRON) 325 mg (65 mg iron) tablet Take 325 mg by mouth daily. Active metoprolol succinate ER (TOPROL-XL) 100 mg Oral Tablet Sustained Release 24 hr Take 100 mg by mouth daily. Active carvediloL (COREG) 25 mg Oral Tablet Take 25 mg by mouth 2 times daily. 4 times a day Active fUROsemide (LASIX) 40 mg Oral Tablet Take 20 mg by mouth every 12 hours. Active minoxidiL (LONITEN) 2.5 mg Oral Tablet Take 2.5 mg by mouth 2 times daily. Active AMLODIPINE BENZOATE ORAL Take 10 mg by mouth daily. Active potassium chloride (KLOR-CON) 10 mEq Oral Tablet Sustained Release Take 10 mEq by mouth daily. Active citalopram (CELEXA) 20 mg Oral Tablet Take 20 mg by mouth daily. Active LOSARTAN POTASSIUM, BULK, MISC 100 mg by Misc.(Non-Drug; Combo Route) route. Active ergocalciferol (VITAMIN D) 1,250 mcg (50,000 unit) Oral CapsuleIndicati ons:Vitamin D deficiency 1 pill a day with supper for 5 days then 1 pill a week with supper 10 Capsule 6 4 Active Calcium Citrate-Vitamin D3 (CITRACAL + D MAXIMUM) 315 mg-6.25 mcg (250 unit) Oral TabletIndicatio ns:Hyperparathy roidism, secondary Take 2 Tablets by mouth every evening. 4 Active cyanocobalamin 1,000 mcg/mL Inj Solution Subcutaneous (Inject under the skin) 1 mL once a week. 4 mL 6 4 Active Syringe with Needle, Disp, 1 mL 25 gauge x 5/8 Misc Syringe Use as directed to inject Vitamin B12 SubQ 12 Each 1 4 Active Active Problems Problem Noted Date Diagnosed Date Multinodular goiter 06/29/2024 Assessment & Plan (06/29/2024 1:00 PM EDT): The patient was found to have subclinical hyperthyroidism which is most likely reflection of autonomous multinodular goiter. She does have a history of small bilateral thyroid nodules. She is euthyroid clinically. The nature of her condition as well as results of workup were reviewed with the patient and her daughter in detail. Will reassess the thyroid function test today and decide on the need for pharmacological intervention. Other specified disorders of bone density and structure, other site 06/29/2024 Assessment & Plan (06/29/2024 1:01 PM EDT): The patient has known risk factors for bone lossSuch as longstanding estrogen deficiency, history of gastric bypass surgery as well as subclinical hyperthyroidism.. We will proceed with bone densitometry study to assess bone mass. The recommendations will be made based on the work-up results. Personal history of gastric bypass 06/29/2024 Vitamin D deficiency 06/29/2024 Assessment & Plan (06/29/2024 1:01 PM EDT): will measure vit.D Hyperparathyroidism, secondary 06/29/2024 Assessment & Plan (06/29/2024 1:02 PM EDT): will assess parathyroid axis Vitamin B12 deficiency 06/29/2024 Assessment & Plan (06/29/2024 1:02 PM EDT): Will measure vit.B12 Social History Tobacco Use Types Packs/Day Years Used Date Smoking Tobacco: Never Passive Smoke Exposure: Never Smokeless Tobacco: Never Tobacco Cessation:Counseling Given: Not Answered Comments Unknown Sex and Gender Information Value Date Recorded Sex Assigned at Not on file Legal Sex Female 4:41 PM EDT Gender Identity Not on file Sexual Orientation Not on file Obstetrics History Last Filed Vital Signs Vital Sign Reading Time Taken Comments Blood Pressure 130/80 10/23/2022 12:15 PM EST Pulse 73 10/23/2022 12:15 PM EST Temperature - - Respiratory Rate - - Oxygen Saturation 96% 10/23/2022 12:15 PM EST Inhaled Oxygen Concentration - - Weight 122.9 kg (271 lb) 10/23/2022 12:15 PM EST Height 160 cm (5' 3 ) 10/23/2022 12:15 PM EST Body Mass Index 48.01 10/23/2022 12:15 PM EST Plan of Treatment Health Maintenance Due Date Last Done Comments Wellness Exam Medicare 1958 Hepatitis C Screening 1975 Cologuard 2002 Colon Cancer Screening 2002 Colonoscopy 2002 FIT 2002 Sigmoidoscopy 2002 Virtual Colonography 2002 Zoster (1 of 2) 2007 Breast Cancer Screening 06/09/2011 06/09/20, 06/09/2009, 11/25/2006, Additional history exists RSV or 60+ (1 - Risk 60-74 years 1-dose series) 2017 Pneumococcal Vaccine 50+ (2 of 2 - PCV) 09/09/2018 09/09/2017 Bone Density Screening 2022 COVID-19 Vaccine ( - 2023- season) 2025 Influenza Vaccine (#1) 2025 09/09/2017, 2011 DTaP/TDaP/Td (2 - Td or Tdap) 04/29/2028 04/29/2018 Hepatitis B Vaccine Aged Out No longe r eligible based on patient's age to complete this topic Meningococcal B Vaccine Aged Out No l onger eligible based on patient's age to complete this topic Procedures Procedure Name Priority Date/Time Associated Diagnosis Comments MM DIG DIAG ESTHER PANEL W/CAD Routine 06/09/2009 2:20 PM EDT from Last 3 Months or Most Recently Relevant to Health Maintenance Results * MM DIG DIAG ESTHER PANEL W/CAD (06/09/2009 2:20 PM EDT) Anatomical Region Laterality Modality Other 06/09/2009 2:20 PM EDT Narrative 06/12/2009 7:24 AM EDT Procedure-MM DIG DIAG ESTHER PANEL W/CAD MM DIGITAL DIAG BILAT PANEL Bilateral CC and MLO view(s) were taken. There are scattered fibroglandular densities. There is a benign appearing 1.5 cm. oval mass with well-defined margins in the 6-00 position of the right breast. No mammographic abnormality on left. IMPRESSION- Incomplete-need additional imaging evaluation ([id number]) RECOMMENDATION- Ultrasound of the left breast, This ultrasound examination was performed on 06-09-09 and will be reported separately. * The patient with a palpable abnormality, unexplained by breast imaging, should be managed on clinical basis by the attending physician. * Breast imaging has a false negative rate of 15%. * The patient was notified by mail of the results of this examination. Hydro Sprayer Operator- HAJA STANTON Reading Physician- ALEAH HOLLOWAY MD Released Date Time- 06/12/09 0811 Procedure Note Aleah Holloway - 02/01/2010 Procedure-MM DIG DIAG ESTHER PANEL W/CAD MM DIGITAL DIAG BILAT PANEL Bilateral CC and MLO view(s) were taken. There are scattered fibroglandular densities. There is a benign appearing 1.5 cm. oval mass with well-defined margins in the 6-00 position of the right breast. No mammographic abnormality on left. IMPRESSION- Incomplete-need additional imaging evaluation ([id number]) RECOMMENDATION- Ultrasound of the left breast, This ultrasound examination was performed on 06-09-09 and will be reported separately. * The patient with a palpable abnormality, unexplained by breast imaging, should be managed on clinical basis by the attending physician. * Breast imaging has a false negative rate of 15%. * The patient was notified by mail of the results of this examination. Hydro Sprayer Operator- HAJA STANTON Reading Physician- ALEAH HOLLOWAY MD Released Date Time- 06/12/09810 Won Soto MD [facility] HISTORICAL Mere l Result from Last 3 Months or Most Recently Relevant to Health Maintenance Insurance [place]ARE [place] [address] [place] [address] [employer] [facility] MEDICARE [place] PART A AND B ANTH PPO Care Teams Plant Operations Engineer Relationship Specialty Start Date End Date Won Soto MD PCP - General Family Medicine 08/10/13 Nataliya Marquez MD [address] [place] [place] [address] Internal Medicine-Endocrinology, Diabetes & Metabolism 06/29/24
== END 2025-08-15 23:59 | disposition home or self-care (01) ==
LOC: RAD 14:45
PROVIDERS: PCP Family Medicine; Visit Provider Family Medicine
DX: N63.14 Unspecified lump in the right breast, lower inner quadrant (principal); R92.8 Other abnormal and inconclusive findings on diagnostic imaging of breast; R92.311 Mammographic fatty tissue density, right breast
CPT/HCPCS: 76641; 77061; 77065; G0279

== ENCOUNTER 2025-09-23 12:52 | Outpatient (CLI) | payer MEDICARE, BC, SELFPAY ==
--- OUTSIDE RECORDS SUMMARY | 2025-09-23 12:57 | XMS_ITS | Clinical Summary ---
Author Organization [facility] [place] Address [address] [place] [address] Care Team Providers Care Director Loss Prevention Name Role Phone Won Soto MD Primary Care Provider [phone] Nataliya Marquez MD Unavailable [phone] Allergies Active Allergy Reactions Criticality Noted Date [...] on file Sexual Orientation Not on file Last Filed Vital Signs Vital Sign Reading [...] FIT 2002 Sigmoidoscopy 2002 Virtual Colonography 2002 RSV or 60+ (1 - Risk 50-74 years 1-dose series) 2007 Zoster (1 of 2) 2007 Breast Cancer Screening 06/09/2011 06/09/20 09, 06/09/2009, 11/25/2006, Additional history exists Pneumococcal Vaccine 50+ (2 of 2 - PCV) 09/09/2018 09/09/2017 Bone Density Screening 2022 COVID-19 Vaccine ( - 2024- season) 2025 Influenza Vaccine (#1) 2025 09/09/2017, [...] on left. IMPRESSION- Incomplete-need additional imaging evaluation ([id number]) RECOMMENDATION- Ultrasound of the left breast, This ultrasound examination was performed on 06-09-09 and will be reported separately. * The patient with a palpable abnormality, unexplained by breast imaging, should be managed on clinical basis by the attending physician. * Breast imaging has a false negative rate of 15%. * The patient was notified by mail of the results of this examination. Disciplinary Hearing Officer- HAJA STANTON Reading Physician- ALEAH HOLLOWAY MD [...] on left. IMPRESSION- Incomplete-need additional imaging evaluation ([id number]) RECOMMENDATION- Ultrasound of the left breast, This ultrasound examination was performed on 06-09-09 and will be reported separately. * The patient with a palpable abnormality, unexplained by breast imaging, should be managed on clinical basis by the attending physician. * Breast imaging has a false negative rate of 15%. * The patient was notified by mail of the results of this examination. Disciplinary Hearing Officer- HAJA STANTON Reading Physician- ALEAH HOLLOWAY MD Released Date Time- 06/12/09810 Won Soto MD [facility] RAD HISTORICAL Mere l Result from Last 3 Months or Most Recently Relevant to Health Maintenance Insurance [place]ICARE [place] [facility] [place] PART A AND B ANTH PPO Care Teams Director Loss Prevention Relationship Specialty Start Date End Date Won Soto MD PCP - General Family Medicine 08/10/13 Nataliya Marquez MD [address] [place] [address] Internal Medicine-Endocrinology, Diabetes & Metabolism 06/29/24
--- NOTE | 2025-09-23 13:30 | US_ITS ---
FINAL REPORT TECHNIQUE: Sonographic images of the thyroid gland were obtained in the longitudinal and transverse planes. CLINICAL HISTORY: Thyroid Nodule COMPARISON: 01/27/2025 FINDINGS: The right lobe measures 1.2 x 3.4 x 1.7 cm. The right lobe is homogeneous. No solid thyroid nodules. Tiny colloid cyst. The left lobe measures 1.4 x 3.8 x 1.6 cm. The left lobe is homogeneous. Small hypoechoic benign-appearing 7 mm nodule is unchanged. The isthmus measures 5 mm. This is normal. IMPRESSION: No concerning abnormality. Stable very small left thyroid nodule. Reviewed, Interpreted and Dictated by Analy Chase MD Transcribed by Marian Gusman Authenticated and [facility]
[2025-09-23 13:43] LABS: Hematocrit 40.2 % (37.0-47.0); Hemoglobin 13.4 g/dL (12.2-16.2); Immature Granulocytes % 0.2 %; Mean Corpuscular HGB Conc 33.3 g/dL (31.8-35.4); Mean Corpuscular Hemoglobin 31.7 pg (27.0-31.2); Mean Corpuscular Volume 95.0 fl (81-99); Nucleated Red Blood Cells % 0 %; Platelet Count 257 K/mm3 (142-424); Red Blood Count 4.23 M/mm3 (4.20-5.40); Red Cell Distribution Width-SD 43.1 fL; White Blood Count 9.0 K/mm3 (4.8-10.8)
[2025-09-23 13:54] LABS: Albumin Level 4.6 g/dl (3.5-5.0); Chloride 100 mmol/L (98-107); Hemoglobin A1C 6.0 % (4.0-6.0); Potassium 4.6 mmoL/L (3.5-5.1); Sodium 134 mmol/L (136-145)
[2025-09-23 13:56] LABS: Alanine Aminotransferase 12 U/L (12-78); Anion Gap 11.6 mEq/L (5-15); Aspartate Amino Transferase 22 U/L (14-36); Blood Urea Nitrogen 15 mg/dl (7-17); Carbon Dioxide 27 mmol/L (22.0-30.0); Creatinine,Serum 0.90 mg/dl (0.52-1.04); Estimated Glomerular Filt Rate 62 ml/min (>60); GFR (African American) 76 ML/MIN (>60)
[2025-09-23 13:57] LABS: Albumin/Globulin Ratio 2.0 (1.1-1.8); Alkaline Phosphatase 129 U/L (38-126); Bilirubin,Total 0.2 mg/dl (0.2-1.3); Calcium 8.2 mg/dl (8.4-10.2); Cholesterol 222 mg/dl (140-200); Globulin 2.3 g/dL (1.3-3.2); Glucose 100 mg/dl (74-100); HDL Cholesterol 51 mg/dl (40-60); Total Protein,Serum 6.9 g/dl (6.3-8.2); Triglycerides 212 mg/dl (30-150)
[2025-09-23 14:29] LABS: Thyroid Stimulating Hormone 0.07 uIU/mL (0.465-4.68)
== END 2025-09-23 23:59 | disposition home or self-care (01) ==
LOC: RAD 12:54
PROVIDERS: PCP Family Medicine; Visit Provider Family Medicine
DX: Z00.00 Encounter for general adult medical examination without abnormal findings (principal); E04.1 Nontoxic single thyroid nodule; I10 Essential (primary) hypertension; E11.8 Type 2 diabetes mellitus with unspecified complications; R53.83 Other fatigue
CPT/HCPCS: 36415; 76536; 80053; 80061; 83036; 84443; 85025